=== PATIENT | female | born 1965 | race Caucasian/White ===

== ENCOUNTER 2018-04-16 10:41 | Emergency (ER) | payer BC ==
[~2018-04-16] VITALS: Ht 167.6 cm; Wt 126.1 kg
[2018-04-16 11:32] LABS: HEMATOCRIT 39.2 % (36.0-46.0); HEMOGLOBIN 12.7 G/DL (11.9-15.5); MCH 28.3 PG (29.0-34.0); MCHC 32.4 G/DL (30.0-36.0); MCV 87.5 FL (83-99); PLATELET COUNT 232 K/uL (156-360); RBC DIS.WIDTH-CV 13.8 % (11.8-14.6); RBC DIS.WIDTH-SD 44.3 % (39-53); RED BLOOD COUNT 4.48 M/uL (3.80-5.20)
[2018-04-16 11:42] LABS: ALBUMIN 3.6 g/dL (3.2-4.8)
[2018-04-16 11:43] LABS: CHLORIDE 110 mEq/L (99-109); POTASSIUM 4.4 mEq/L (3.7-5.4); SODIUM 142 mEq/L (136-147)
[2018-04-16 11:45] LABS: GLUCOSE 111 mg/dL (70-99); TOTAL PROTEIN 6.8 g/dL (6.4-8.3)
[2018-04-16 11:47] LABS: TOTAL BILIRUBIN 0.4 mg/dL (0.0-1.0)
[2018-04-16 11:48] LABS: ALKALINE PHOSPHATASE 112 IU/L (3-129)
[2018-04-16 11:49] LABS: CREATININE 0.8 mg/dL (0.6-1.3); GFR ESTIMATE (CALCULATED) > 59 mL/min/
[2018-04-16 11:50] LABS: AST (GOT) 16 IU/L (2-34); UREA NITROGEN (BUN) 8 mg/dL (9-23)
[2018-04-16 11:51] LABS: ALT (GPT) 23 IU/L (3-49)
[2018-04-16 12:30] LABS: URIC ACID 7.2 mg/dL (3.1-9.2)
[2018-04-16] MEDS ORDERED: INDOCIN50 MG PO (12:33)
[2018-04-16] MEDS ORDERED: PERCOCET 5/31 TABLET PO (12:38)
[2018-04-16 13:00] VITALS: BP 138/89
== END 2018-04-16 13:02 | disposition home or self-care (01) ==
LOC: EME 10:41
PROVIDERS: Nurse Practitioner Family
DX: M10.071 Idiopathic gout, right ankle and foot (principal); Z83.49 Family history of other endocrine, nutritional and metabolic diseases
CPT/HCPCS: 73630; 80053; 84550; 85027; 99281; 99284